=== PATIENT | male | born 2005 | race African-American/Black ===

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

== ENCOUNTER 2025-01-27 11:12 | Emergency (ER) | payer BC ==
[2025-01-27] MEDS ORDERED: Dexamethasone 10 MG/ML VIAL ONE (12:05)
== END 2025-01-27 12:42 | disposition home or self-care (01) ==
LOC: ERS 11:12
DX: R06.2 Wheezing (principal); R05.9 Cough, unspecified
CPT/HCPCS: 87428; 96372; 99285; J1100